=== PATIENT | male | born 1955 | race Caucasian/White ===

== ENCOUNTER → 2019-08-27 | Outpatient (CLI) | payer MEDICAID ==
[2019-08-27 10:49] LABS: African American GFR (CKD) >90 (>60 ml/min/1.73 sqM); Blood Urea Nitrogen 21 mg/dL (9-20); Non-African American GFR(CKD) 86 (>60 ml/min/1.73 sqM)
--- NOTE | 2019-09-01 15:30 | CT ---
EXAMINATION TYPE: CT angio chest DATE OF EXAM: 08/27/2019 COMPARISON: Outside CT 11/24/2017. HISTORY: Follow up known thoracic aneurysm CT DLP: 650.7 mGycm CONTRAST: CTA thoracic aorta with 3-D reconstruction is performed and with IV Contrast, patient injected with 1 00 mL of Isovue 370. Contrast CTA of the thoracic aorta was performed from the lung apex through the upper abdomen. 3D re construction imaging obtained at a separate workstation. CT Chest: THORACIC AORTA: There is aneurysm of the thoracic aorta at its root measuring 4.5 cm. Midportion asce nding thoracic aorta measures 4.0 cm. No complicating factors identified. No evidence for dissection or mediastinal hematoma. Aortic arch and descending thoracic aorta normal caliber. LUNGS: The lungs are clear and free of infiltrate or atelectasis. No pulmonary nodule or mass is det ected. No pleural effusion or CT evidence of interstitial lung disease. MEDIASTINUM: No evidence for mediastinal hematoma. The heart is not enlarged. No evidence for med iastinal mass or adenopathy. HILAR STRUCTURES: No evidence for mass. No hilar adenopathy is appreciated. OTHER: No significant abnormality. IMPRESSION- 1 thoracic aortic aneurysm at its root and midportion as discussed above. Direct comparison is diffic ult however there does not appear to be significant interval change.
== END | disposition home or self-care (01) ==
LOC: RADCTMAIN 10:13
PROVIDERS: ATTEND Internal Medicine Interventional Cardiology
DX: I71.2 Thoracic aortic aneurysm, without rupture (principal)
CPT/HCPCS: 82565; 84520; 71275; 36415; Q9967

== ENCOUNTER → 2020-10-05 | Outpatient (CLI) | payer MEDICARE ==
[2020-10-05 11:21] LABS: African American GFR (CKD) >90 (>60 ml/min/1.73 sqM); Blood Urea Nitrogen 23 mg/dL (9-20); Non-African American GFR(CKD) 78 (>60 ml/min/1.73 sqM)
--- NOTE | 2020-10-05 12:48 | US ---
EXAMINATION TYPE: US carotid duplex BILAT DATE OF EXAM: 10/05/2020 COMPARISON: NONE CLINICAL HISTORY: R25.1. Pt states heart "skipping beats"/ tremors EXAM MEASUREMENTS: RIGHT: Peak Systolic Velocity (PSV) cm/sec ----- Right CCA: 91.9 ----- Right ICA: 81.7 ----- Right ECA: 101.8 ICA/CCA ratio: 0.9 RIGHT: End Diastole cm/sec ----- Right CCA: 9.5 ----- Right ICA: 24.1 ----- Right ECA: 0.0 LEFT: Peak Systolic Velocity (PSV) cm/sec ----- Left CCA: 90.8 ----- Left ICA: 95.2 ----- Left ECA: 56.7 ICA/CCA ratio: 1.0 LEFT: End Diastole cm/sec ----- Left CCA: 12.8 ----- Left ICA: 27.0 ----- Left ECA: 0.0 VERTEBRALS (direction of flow): Right Vertebral: Antegrade Left Vertebral: Antegrade Rhythm: Arrhythmia No evidence of significant stenosis bilaterally/ Distal CCA bilaterally appeared dilated IMPRESSION: 1. No significant flow-limiting stenosis Criteria for Assigning % of Stenosis / Diameter reduction (Estimation based on the indirect measurements of the internal carotid artery velocities (ICA PSV). 1. Normal (no stenosis)=ICA PSV < 125 cm/s: ratio < 2.0: ICA EDV<40 cm/s. 2. Less than 50% stenosis=ICA PSV < 125 cm/s: ratio < 2.0: ICA EDV<40 cm/s. 3. 50 to 69% stenosis=ICA PSV of 125 to 230 cm/s: ration 2.0 ? 4.0: ICA EDV 40-100 cm/s. 4. Greater than 70% stenosis to near occlusion= ICA PSV > 230 cm/s: ratio > 4.0: ICA EDV > 100 cm/s. 5. Near occlusion= ICA PSV velocities may be low or undetectable: variable ratio and ICA EDV. 6. Total occlusion=unable to detect flow.
--- NOTE | 2020-10-05 14:45 | CT ---
EXAMINATION TYPE: CT chest with contrast CT abdomen pelvis without and with contrast DATE OF EXAM: 10/05/2020 COMPARISON: CT chest 08/27/2019 HISTORY: 65-year-old male Thoracic aneurysm, abdominal mass. TECHNIQUE: Contiguous axial scanning of the abdomen and pelvis initially without IV contrast. Subsequ ent scanning of the chest, abdomen, and pelvis with IV Contrast, patient injected with 100 mL of Isov ue 300. Delayed images through the kidneys were obtained. Coronal/sagittal reconstructions performed. CT DLP: 2824.60 (accession [id number]), 1795.4 (accession [id number]) mGycm Automated exposure control for dose reduction was used. FINDINGS: CHEST: Heart normal size without pericardial effusion. Some LAD coronary artery calcifications are present. Aortic root aneurysmal at 4.3 cm versus 4.5 cm, previously. Ascending aorta aneurysmal at 4.0 cm, unchanged. Bovine configuration to the aortic arch. No evidence for aortic dissection. Mildly enlarged caliber to the main right and left pulmonary arteries are 2.6 and 2.7 cm, respectivel y, suggesting underlying pulmonary arterial hypertension. Mild bilateral gynecomastia. No thoracic lymphadenopathy by CT size criteria. Strandy atelectasis in the lower lungs. No consolidation or pleural effusion. ABDOMEN: Liver enlarged at 19.3 cm. At least mild fatty infiltration given the low-attenuation. Portal venous system is patent. No biliary ductal dilatation. Gallbladder, adrenal glands, left kidney, spleen, and pancreas appear within normal limits. Slightly patulous distal left ureter dilated up to 9 mm of questionable clinical significance. 2.0 cm hypodense lesion medial cortex right kidney compatible with a cyst. 1.2 cm jarvis hepatis lymph node is nonspecific, unchanged from prior. Otherwise, no mesenteric or ret roperitoneal lymphadenopathy. No dilated small bowel, free fluid, or free air. Normal appendix. Mild overall stool burden. Sigmoid diverticulosis. Mildly redundant sigmoid colon. No pericolonic inf lammatory change. No evidence for AAA or significant abdominal aortic ectasia. PELVIS: Bladder is urine distended. Central prostatic calcifications. Prostate gland measures 4.9 cm wide. No abnormal fluid collection in the pelvis or pelvic lymphadenopathy. BONES: Moderate degenerative change of both hips. Facet arthropathy lower lumbar spine. DISH within the mid to lower thoracic spine. Some interval callus involving the left lateral ninth rib suggesting a subac yolanda to chronic injury, new from 08/27/2019. No osseous destructive process. IMPRESSION: 1. ANEURYSMAL AORTIC ROOT AT 4.3 CM (UNCHANGED). 2. ANEURYSMAL ASCENDING AORTA AT 4.0 CM (UNCHANGED). 3. LAD CORONARY ARTERY CALCIFICATIONS. POSSIBLE UNDERLYING PULMONARY ARTERIAL HYPERTENSION. 4. 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 5. SHORT SEGMENT DILATATION OF THE DISTAL LEFT URETER UP TO 9 MM OF QUESTIONABLE CLINICAL SIGNIFICANC E. CORRELATE WITH URINE CYTOLOGY. IF CONCERN FOR AN UNDERLYING UROTHELIAL LESION, CONSIDER CT UROGRAM . 6. SIGMOID DIVERTICULOSIS WITHOUT ACUTE DIVERTICULITIS. 7. UNABLE TO IDENTIFY AN ABDOMINAL MASS. IF PERSISTENT CONCERN, PLEASE CONTACT RADIOLOGY IN ORDER TO INDICATE THE AREA OF CONCERN AND THE EXAM CAN BE REVIEWED WITH DIRECTED ATTENTION.
== END | disposition home or self-care (01) ==
LOC: RADCTMAIN 10:04
PROVIDERS: ATTEND Family Medicine
DX: I71.2 Thoracic aortic aneurysm, without rupture (principal); I25.10 Atherosclerotic heart disease of native coronary artery without angina pectoris; R16.0 Hepatomegaly, not elsewhere classified; K76.0 Fatty (change of) liver, not elsewhere classified; N28.82 Megaloureter; K57.30 Diverticulosis of large intestine without perforation or abscess without bleeding; R25.1 Tremor, unspecified
CPT/HCPCS: 82565; 84520; 93880; 71260; 74176; 74177; 36415; Q9967

== ENCOUNTER → 2020-10-15 | Outpatient (CLI) | payer MEDICARE ==
--- NOTE | 2020-10-16 08:53 | MR ---
MR brain without contrast HISTORY: Tremors, right arm numbness, R 25.1, R 20.2 Multiplanar multisequence imaging through the brain No comparisons There is no restricted diffusion. There is no hemorrhage or hydrocephalus. Cortical atrophy is presen t. The corpus callosum, pituitary, cervical medullary junction, cerebellopontine angles are within no rmal limits. There are normal vascular flow voids. Periventricular confluent and scattered hyperinten sities are present on inversion recovery T2-weighted sequences. Largest lesion adjacent to the transmission supervisor ior horn left lateral ventricle posteriorly measures 11 mm. Orbits show symmetric appearance. Inflamm atory changes are present in the ethmoid air cells. IMPRESSION: Age-related changes of atrophy and probable chronic small vessel ischemia. Mild sinus dis ease. No subacute ischemia.
== END | disposition home or self-care (01) ==
LOC: RADMRIMAIN 08:10
PROVIDERS: ATTEND Family Medicine
DX: G31.1 Senile degeneration of brain, not elsewhere classified (principal)
CPT/HCPCS: 70551

== ENCOUNTER → 2021-12-06 | Outpatient (CLI) | payer MEDICARE ==
[2021-12-06 09:55] LABS: Creatinine,Urine Random 165.3 mg/dL; Protein/Creatinine Ratio,Urine 0.067
[2021-12-06 19:18] LABS: Basophils # (A) 0.08 X 10*3/uL (0.00-0.10); Eosinophils # (A) 0.33 X 10*3/uL (0.04-0.35); Eosinophils % (A) 3.9 %; HCT 48.9 % (39.6-50.0); HGB 15.4 g/dL (13.0-17.0); Immature Grans, Automated 0.5 %; Lymphocytes # (A) 2.35 X 10*3/uL (0.90-5.00); Lymphocytes % (A) 28.1 %; MCH 30.1 pg (27.0-32.0); MCHC 31.5 g/dL (32.0-37.0); MCV 95.7 fL (80.0-97.0); Monocytes # (A) 0.84 X 10*3/uL (0.20-1.00); NRBC Per 100 WBC 0 /100 WBCS (0.0-0.0); Neutrophils # (A) 4.72 X 10*3/uL (1.80-7.70); Neutrophils % (A) 56.5 %; Platelet Count 245 X 10*3/uL (140-440); RBC 5.11 X 10*6/uL (4.40-5.60); WBC 8.36 X 10*3/uL (4.50-10.00)
[2021-12-06 20:11] LABS: ALT 54 U/L (10-49); AST 33 U/L (14-35); African American GFR (CKD) 88.4 (60.0-200.0); Albumin 4.1 g/dL (3.8-4.9); Albumin/Globulin Ratio 1.54 (1.60-3.17); Alkaline Phosphatase 59 U/L (41-126); BUN/Creat Ratio 16.76 Ratio (12.00-20.00); Blood Urea Nitrogen 17.1 mg/dL (9.0-27.0); Calcium 9.8 mg/dL (8.7-10.3); Carbon Dioxide 19.2 mmol/L (20.0-27.5); Chloride 97 mmol/L (96-109); Chol/HDL Ratio 4.88 Ratio; Globulin 2.7 g/dL (1.6-3.3); Glucose 332 mg/dL (70-110); LDL Cholesterol,Calculated 105.5 mg/dL (0.0-131.0); Non-African American GFR(CKD) 76.2 (60.0-200.0); Potassium 4.7 mmol/L (3.5-5.5); Sodium 137 mmol/L (135-145); Total Protein 6.8 g/dL (6.2-8.2)
== END | disposition home or self-care (01) ==
LOC: LABWHC1 08:27
PROVIDERS: ATTEND Nurse Practitioner Adult Health
DX: Z00.00 Encounter for general adult medical examination without abnormal findings (principal); I10 Essential (primary) hypertension; E55.9 Vitamin D deficiency, unspecified; E03.9 Hypothyroidism, unspecified; E11.65 Type 2 diabetes mellitus with hyperglycemia; E66.9 Obesity, unspecified; J45.909 Unspecified asthma, uncomplicated; N40.1 Benign prostatic hyperplasia with lower urinary tract symptoms
CPT/HCPCS: 84439; 82570; 80061; 80053; 84443; 84156; 85025; 82306; 83036; 36415; G0103

== ENCOUNTER → 2022-03-22 | Outpatient (CLI) | payer MEDICARE ==
--- NOTE | 2022-03-22 10:29 | XR ---
EXAMINATION TYPE: XR chest 2V DATE OF EXAM: 03/22/2022 COMPARISON: NONE HISTORY: Shortness of breath TECHNIQUE: Frontal and lateral views of the chest are obtained. FINDINGS: Scattered senescent parenchymal changes noted. Hyperinflation compatible with COPD. No evidence for infiltrate. No evidence for atelectasis. Heart size is stable. Mediastinal structures are stable and grossly unremarkable. No evidence for hilar prominence. Degenerative changes dorsal spine. IMPRESSION: 1. No evidence for acute pulmonary disease.
== END | disposition home or self-care (01) ==
LOC: RADXRMAIN 10:02
PROVIDERS: ATTEND Internal Medicine
DX: R06.02 Shortness of breath (principal)
CPT/HCPCS: 71046

== ENCOUNTER 2023-08-14 09:39 | Day surgery (SDC) | payer MEDICARE ==
[~2023-08-14 09:39] MED LIST: ALPRAZolam 0.25 MG TAB PO PRN; ALPRAZolam 0.5 MG TAB PO PRN; ASPIRIN 325 MG TAB PO STA; NITROGLYCERIN SL TABS 0.4 MG TAB SUBLINGUAL PRN; SODIUM CHLORIDE 0.9% 1,000 ML in EMPTY BAG 1 BAG IV SCH
[2023-08-14] MEDS ORDERED: SODIUM CHLORIDE 0.9% 1,000 ML IV ONE (09:50)
[2023-08-14 10:09] LABS: Glucose,Whole Blood 126 mg/dL (70-110)
[2023-08-14 10:16] LABS: Anisocytosis Slight; Basophils % (A) 1 %; Eosinophils # (A) 0.4 k/uL (0-0.7); Eosinophils % (A) 4 %; HCT 35.2 % (39.0-53.0); HGB 10.7 gm/dL (13.0-17.5); Hypochromasia Marked; Lymphocytes # (A) 2.1 k/uL (1.0-4.8); Lymphocytes % (A) 24 %; MCH 22.8 pg (25.0-35.0); MCHC 30.5 g/dL (31.0-37.0); MCV 74.8 fL (80.0-100.0); Mean Platelet Volume 9.5; Microcytosis Slight; Monocytes # (A) 0.7 k/uL (0-1.0); Monocytes % (A) 8 %; Neutrophils # (A) 5.5 k/uL (1.3-7.7); Neutrophils % (A) 61 %; Platelet Count 267 k/uL (150-450); RBC 4.71 m/uL (4.30-5.90); RDW 16.8 % (11.5-15.5)
[2023-08-14 10:26] VITALS: TEMP 97.4
[2023-08-14] MEDS ORDERED: LIDOCAINE 1% INJ 10MG/ML (20 ML MDV) SQ ONE (12:20)
[2023-08-14] MEDS ORDERED: VERAPAMIL SYRINGE (5 MG/10 ML) INTRAARTER ONE (12:21)
[2023-08-14 12:24] LABS: African American GFR (CKD) >90 (>60 ml/min/1.73 sqM); Anion Gap 14 mmol/L; Blood Urea Nitrogen 13 mg/dL (9-20); Carbon Dioxide 21 mmol/L (22-30); Chloride 102 mmol/L (98-107); Glucose 130 mg/dL (74-99); Non-African American GFR(CKD) 89 (>60 ml/min/1.73 sqM); Potassium 4.1 mmol/L (3.5-5.1); Sodium 137 mmol/L (137-145)
[2023-08-14] MEDS ORDERED: HEPARIN SODIUM 1,000 UN/ML (10ML VL) IVP ONE (12:24)
[2023-08-14] MEDS ORDERED: MIDAZOLAM 2 MG/2 ML VIAL IVP ONE (12:24)
[2023-08-14] MEDS ORDERED: IOPAMIDOL-370 100ML BTL INJ ONE (12:39)
[2023-08-14] MEDS ORDERED: RX INFO: IV CONTRAST WAS GIVEN 1 EACH MISC MISCELLANE PRN (12:42)
[2023-08-14] MEDS ORDERED: SODIUM CHLORIDE 0.9% 1,000 ML IV SCH (12:45)
--- NOTE | 2023-08-14 12:45 | P.PCN ---
Date of Procedure: 08/14/23 Operative Findings: CARDIAC CATHETERIZATION PERFORMING PHYSICIAN: Sridhar Clark MD, RPVI PROCEDURE PERFORMED: 1. Selective right and left coronary angiogram 2. Left heart catheterization 3. Ultrasound-guided access of the right radial artery INDICATION: Cardiomyopathy COMPLICATION: None APPROACH: Right radial artery LEVEL OF SEDATION: Moderate with a sedation length of 14 minutes PROCEDURE DESCRIPTION: After obtaining an informed consent, the patient was brought to cardiac labor economics professor. Local anesthesia was performed using lidocaine subcutaneously. The right radial artery was cannulated using Seldinger technique, the guidewire passed easily, following that we advanced a 5-Moldovan sheath dilator assembly, the wire and dilator were removed and sheath was flushed. Following that, 2 mg of verapamil along with 5000 unit heparin were given. Selective right and left coronary angiogram using a 6-Moldovan JR4 and JL 3.5 catheters. Following that we did left heart catheterization using 6-Moldovan pigtail catheter. The procedure was completed there was no complication. SELECTIVE CORONARY ANGIOGRAM: The right coronary artery: Caliber vessel and dominant vessel and appeared to be angiographically normal Left main: Is angiographically normal. Bifurcates into an LCx and LAD The left circumflex: Large caliber vessel. Its and on dominant vessel. Its angiographically normal. Gives rises into the first and second and third obtuse marginal branches and what appears to be angiographically normal The left anterior descending artery: Large caliber vessel. The LAD has intermediate lesion in the midportion appears to be in the range of 40-50% only. HEMODYNAMICS: The LVEDP was 8 mmHg was no significant gradient across aortic valve CONCLUSION: 1. Intermediate disease involving the mid LAD 2. Normal left-sided filling pressure POSTPROCEDURE MANAGEMENT: Medical treatment at this point. Consider stress test to rule out ischemia in the LAD territory down the line
[2023-08-14 13:31] VITALS: RESP 16
[2023-08-14 14:35] VITALS: BP 121/57; PULSE 90
== END 2023-08-14 16:34 | disposition home or self-care (01) ==
LOC: CATHCVL 09:39
PROVIDERS: ATTEND Internal Medicine Interventional Cardiology
DX: I25.10 Atherosclerotic heart disease of native coronary artery without angina pectoris (principal); I42.9 Cardiomyopathy, unspecified; I10 Essential (primary) hypertension; E78.5 Hyperlipidemia, unspecified; E66.3 Overweight; E11.9 Type 2 diabetes mellitus without complications; I49.3 Ventricular premature depolarization; Z79.84 Long term (current) use of oral hypoglycemic drugs; Z87.09 Personal history of other diseases of the respiratory system; Z79.899 Other long term (current) drug therapy
CPT/HCPCS: 93458; 76937; 80048; 85025; C1769; C1894; J2250; J2001; J1644; Q9967

== ENCOUNTER → 2023-08-19 | Outpatient (CLI) | payer MEDICARE ==
[2023-08-19 18:36] LABS: % Iron Saturation 4.19 (15.00-50.00); Ferritin 7.8 ng/mL (22.0-322.0)
== END | disposition home or self-care (01) ==
LOC: LABWHC1 11:43
PROVIDERS: ATTEND Family Medicine
DX: D64.9 Anemia, unspecified (principal)
CPT/HCPCS: 36415; 82272; 82728; 83540; 83550

== ENCOUNTER → 2023-11-07 | Outpatient (CLI) | payer MEDICARE ==
[2023-11-07 15:11] LABS: Basophils # (A) 0.09 X 10*3/uL (0.00-0.10); Basophils % (A) 1.1 %; HCT 36.1 % (39.6-50.0); HGB 10.1 g/dL (13.0-17.0); Lymphocytes # (A) 1.66 X 10*3/uL (0.90-5.00); Lymphocytes % (A) 20.6 %; MCH 21.8 pg (27.0-32.0); Mean Platelet Volume 10.4 FL (9.5-12.2); Monocytes # (A) 0.69 X 10*3/uL (0.20-1.00); Monocytes % (A) 8.6 %; NRBC Per 100 WBC 0 X 10*3/uL (0.00-0.01); Neutrophils # (A) 5.21 X 10*3/uL (1.80-7.70); Neutrophils % (A) 64.5 %; Platelet Count 329 X 10*3/uL (140-440); RBC 4.63 X 10*6/uL (4.40-5.60); RDW 17.8 % (11.5-14.5); WBC 8.07 X 10*3/uL (4.50-10.00)
[2023-11-07 15:23] LABS: % Iron Saturation 5.77 (15.00-50.00); Ferritin 6.8 ng/mL (22.0-322.0)
== END | disposition home or self-care (01) ==
LOC: LABWHC1 09:03
PROVIDERS: ATTEND Internal Medicine Gastroenterology
DX: D50.9 Iron deficiency anemia, unspecified (principal)
CPT/HCPCS: 36415; 82728; 83540; 83550; 85025

== ENCOUNTER 2023-12-10 06:39 | Day surgery (SDC) | payer MEDICARE ==
[2023-12-09 08:46] VITALS: BMI 41.9
[2023-12-10] MEDS ORDERED: LIDOCAINE 1% (10MG/ML) FOR IV START INTRADERMA PRN (06:45)
[2023-12-10 07:33] LABS: Glucose,Whole Blood 167 mg/dL (70-110)
[2023-12-10] MEDS: LACTATED RINGERS 1,000 ML IV SCH (07:35)
[2023-12-10 07:36] VITALS: RESP 16; TEMP 97.6
[2023-12-10] MEDS ORDERED: LIDOCAINE 1% INJ 10MG/ML (20 ML MDV) ONE (07:45)
[2023-12-10] MEDS ORDERED: PROPOFOL 10 MG/ML 20 ML VIAL IV ONE (07:45)
--- NOTE | 2023-12-10 08:16 | P.PCN ---
Date of Procedure: 12/10/23 Procedure(s) Performed: Brief history: Patient is a pleasant 68-year-old white male scheduled for an elective upper endoscopy as well as colonoscopy as a part of evaluation of iron deficiency anemia. He denies any abdominal pain, nausea vomiting, rectal bleeding or melena. Procedure performed: Esophagogastroduodenoscopy with biopsy Colonoscopy with biopsy, snare polypectomy and tattooing with Shelli ink Preoperative diagnosis: Iron deficiency anemia Anesthesia: MAC Procedure: After informed consent was obtained from the patient was brought into the endoscopy unit and IV sedation was administered by anesthesia under continuous monitoring. Initially upper endoscopy was done. The Olympus GF 160 video endoscope was inserted inserted into the mouth and esophagus intubated without any difficulty and was gradually advanced into the stomach and duodenum and carefully examined. The bulb and second part of the duodenum appeared normal. In the third part of the duodenum there was a 3 cm broad-based polyp identified and multiple biopsies were done in the polyp. Also biopsies were done from the second part of the duodenum to evaluate for celiac disease. The scope was then withdrawn into the stomach adequately insufflated with air and upon careful examination the antrum and body, cardia and fundus appeared normal. Small antral polyp identified which was biopsied. The scope was then withdrawn into the esophagus. The GE junction was located at 40 cm to the incisors. It appeared regular with no erythema erosions or ulcerations. Rest of the esophagus appeared normal. Patient tolerated the procedure well. At this time the patient continued to remain sedation. Initial digital rectal examination was normal. Olympus CF 160 video colonoscope was then inserted into the rectum and gradually advanced to the cecum without any difficulty. Careful examination was performed as the scope was gradually being withdrawn. The prep was excellent. In the cecum there was a large ulcerated mass occupying the entire cecum and multiple biopsies were done from this area followed by tattoo ing with Shelli ink. Mucosa of the, ascending colon, transverse colon, descending colon, sigmoid colon and rectum appeared normal. In the proximal rectum there was a 1 cm polyp removed by snare polypectomy. Scattered left- sided diverticulosis seen. Retroflexion was performed in the rectum and no lesions were noted. Patient tolerated the procedure well. Impression: 1. Upper endoscopy revealed a 3 cm broad-based duodenal polyp in the third part of the duodenum status post multiple biopsies, small gastric polyps 2. Colonoscopy revealed a) large ulcerated cecal mass status was multiple biopsies followed by tattooing with Shelli ink b) 1 cm proximal rectal polyp status post polypectomy c) scattered sigmoid diverticulosis Recommendations: Findings of this examination were discussed with the patient as well as his family. He was advised to follow with the biopsy results. He'll be seen in office in 1 week. In the meantime he will be scheduled for CT of abdomen and pelvis.
[2023-12-10 08:35] LABS: Glucose,Whole Blood 167 mg/dL (70-110)
[2023-12-10 08:47] VITALS: BP 149/81; PULSE 80
== END 2023-12-10 08:55 | disposition home or self-care (01) ==
LOC: ORWHC2ENDO 06:39
PROVIDERS: ATTEND Internal Medicine Gastroenterology
DX: D12.8 Benign neoplasm of rectum (principal); K57.30 Diverticulosis of large intestine without perforation or abscess without bleeding; K31.7 Polyp of stomach and duodenum; D50.9 Iron deficiency anemia, unspecified; I10 Essential (primary) hypertension; E11.9 Type 2 diabetes mellitus without complications; E07.9 Disorder of thyroid, unspecified; E66.01 Morbid (severe) obesity due to excess calories; Z79.890 Hormone replacement therapy; Z79.82 Long term (current) use of aspirin; Z79.84 Long term (current) use of oral hypoglycemic drugs; Z79.899 Other long term (current) drug therapy; Z68.41 Body mass index [BMI] 40.0-44.9, adult
CPT/HCPCS: 88305; 88342; 88341; 45380; 45385; 43239; 45381; J2001; J2704

== ENCOUNTER → 2023-12-11 | Outpatient (CLI) | payer MEDICARE ==
[2023-12-11 07:45] LABS: African American GFR (CKD) >90 (>60 ml/min/1.73 sqM); Blood Urea Nitrogen 17 mg/dL (9-20); Non-African American GFR(CKD) 85 (>60 ml/min/1.73 sqM)
--- NOTE | 2023-12-11 13:21 | CT ---
EXAMINATION: CT ABDOMEN AND PELVIS WITH IV CONTRAST DATE OF EXAMINATION: 12/11/2023. COMPARISON: CT chest, abdomen and pelvis on 10/05/2020.. INDICATION: Anemia with abnormal colonoscopy. PROCEDURE: Axial CT of the abdomen and pelvis was performed with contrast and sagittal and coronal reformatted images were performed. CT dose lowering techniques were used, to include: automated expos ure control, adjustment for patient size, and/or use of iterative reconstruction. 100 mL of Isovue 30 0 was given intravenously. FINDINGS: LOWER CHEST : The visualized lung bases are clear. There are no pleural or pericardial effusions. ABDOMEN: Liver and Biliary system: There is a subcentimeter hypodensity in the left lobe of the liver that is too small to fully characterize and was not clearly identified on the previous examination. The live r otherwise appears unremarkable. Adrenal glands: Normal. Kidneys and ureters: Approximately 2 cm cyst in the inferior pole of the right kidney is unchanged. T he kidneys otherwise appear unremarkable Spleen: Normal. Pancreas: Normal. Gallbladder: Normal. Lymph nodes, Peritoneum and mesentery: There is no mesenteric or retroperitoneal lymphadenopathy. Gastrointestinal tract: There are no dilated loops of bowel or free intraperitoneal air. The appe ndix is normal. There is mild descending colonic and sigmoid colonic diverticulosis without evidence of diverticulitis. There is thickening involving the base of the cecum which would raise the suspicio n of malignancy. Aorta/IVC: There is mild vascular calcification throughout the abdominal aorta without evidence of aneurysmal dilation or dissection. IVC normal. Abdominal wall: Normal. PELVIS: Fluid: There is no free fluid in the pelvis. Lymph Nodes: There is no pelvic or inguinal lymphadenopathy.. Urinary bladder: Normal. BONES: There are no osseous destructive lesions.. ADDITIONAL SIGNIFICANT FINDINGS: None. IMPRESSION: 1. Thickening of the base of the cecum would raise the suspicion of malignancy. Correlation can be ma de with a history of abnormal colonoscopy. 2. Diverticulosis without evidence of diverticulitis. 3. Subcentimeter hypodensity within the liver is too small to fully characterize, however appears new since the previous examination and a small metastasis would be in the differential diagnosis.
== END | disposition home or self-care (01) ==
LOC: RADCTMAIN 06:57
PROVIDERS: ATTEND Internal Medicine Gastroenterology
DX: K57.90 Diverticulosis of intestine, part unspecified, without perforation or abscess without bleeding (principal); R19.09 Other intra-abdominal and pelvic swelling, mass and lump
CPT/HCPCS: 82565; 84520; 74177; 36415; Q9967

== ENCOUNTER → 2024-05-12 | Outpatient (CLI) | payer MEDICARE ==
--- NOTE | 2024-06-10 14:42 | CT ---
EXAMINATION TYPE: CT angio thoracic CT DLP: 1523.10 mGycm, Automated exposure control for dose reduction was used. DATE OF EXAM: 05/12/2024 COMPARISON: CT abdomen pelvis 12/11/2023, CT chest abdomen and pelvis 10/05/2020, CTA chest 08/27/2019. CLINICAL INDICATION:Male, 69 years old with history of I71.20 Thoracic Aortic Aneurysm, wo rupture; P HH, TECHNIQUE: Multiple axial CTA images of the chest was obtained prior and to the administration of IV contrast. Maximum intensity projection format were performed on a separate workstation. Then the abdo men was scanned after administration of 100 cc of Isovue 370 IV contrast. FINDINGS: ARTERIAL VASCULATURE: No evidence of aortic dissection or intramural hematoma. Stable aneurysmal dila tation of the aortic root measuring up to 4.5 cm. Stable aneurysmal dilatation of the ascending thora cic aorta measuring up to 4.0 cm. No extension into the arch. The descending thoracic aorta measures up to 2.5 cm. PULMONARY ARTERIAL VASCULATURE: Normal caliber. No evidence of filling defect to suggest pulmonary em bolus. VENOUS SYSTEM: Unremarkable. Lungs/pleura: Dependent bilateral lower lobe subsegmental atelectasis. Lingular partial subsegmental atelectasis. No focal consolidation or pneumothorax. No pleural effusion. Heart: Within normal limits. No pericardial effusion. Small coronary artery calcifications. Small aor tic valvular calcifications. Mediastinum: No gross evidence of adenopathy. Lower Neck: No significant findings. Soft tissues: Bilateral gynecomastia. Musculoskeletal: The osseous structures appear intact. Multilevel degenerative disease. Upper abdomen: IMPRESSION: Stable aortic root and ascending aortic aneurysms dating back to 2019 CTA.
== END | disposition home or self-care (01) ==
LOC: RADCTMAIN 13:45
PROVIDERS: ATTEND Internal Medicine Interventional Cardiology
DX: I71.20 Thoracic aortic aneurysm, without rupture, unspecified (principal); Z86.79 Personal history of other diseases of the circulatory system
CPT/HCPCS: 71275; 74174; Q9967

== ENCOUNTER → 2025-04-29 | Outpatient (CLI) | payer MEDICARE ==
[2025-04-29 13:07] LABS: African American GFR (CKD) >90 (>60 ml/min/1.73 sqM); Blood Urea Nitrogen 15 mg/dL (9-20); Non-African American GFR(CKD) 85 (>60 ml/min/1.73 sqM)
--- NOTE | 2025-04-29 14:32 | CT ---
EXAMINATION TYPE: CT angio thor/abd DATE OF EXAM: 04/29/2025 2:02 PM COMPARISON: 05/12/2024 CLINICAL INDICATION: Male, 70 years old with history of Q25.43 CONGENITAL ANEURYSM OF AORTA; PHH, f/u AAA TECHNIQUE: Multiple thin slice sub-millimeter images were obtained after administration of contrast. MIP reconstructed images and maximum intensity projection images were obtained. 3D reconstructed images and maximum intensity projection images were obtained. CT angio thor/abd CT Contrast: Contrast used:100ml mL of Isovue 370 without and with IV Contrast, Oral contrast used: None CT DLP: 2036.9 mGycm, Automated exposure control for dose reduction was used. FINDINGS: CTA chest: The ascending thoracic aorta at the main pulmonary artery is 4.3 cm. Previous measurement 4.0 cm. On the previous dilated aortic root does not appear as prominent on the current examination. Main pulmonary artery the bifurcation is 3.1 cm. Mild coronary artery calcification is present. There is a common origin of the right subclavian and left common carotid artery from the innominate. No ao rtic dissection is evident. Descending thoracic aorta are tapers normally through its visualized cour se. CTA Abdomen and pelvis: Common celiac superior mesenteric artery origins are normal. Renal artery lex gins are normal. Minimal vascular calcifications within the aorta. Inferior mesenteric artery is norm al. Bifurcation is unremarkable. No aneurysmal dilatation of the abdominal aorta is evident. Proximal common iliac arteries are patent. CT CHEST: Portion of the thyroid visualized is normal. No suspicious lung nodules or focal infiltrates are present. No enlarged mediastinal or hilar adenopathy is evident. CT ABDOMEN: Note is made of a bowel anastomosis in the right mid abdomen ascending colon region. Liver: Normal Spleen: Normal Pancreas: Normal Adrenal glands: The adrenal glands are normal. Gallbladder: Normal Kidneys: No masses are evident. No hydronephrosis is present. No cysts are present. Delayed images were obtained through the kidneys, which remain unremarkable. Aorta: Vascular calcification is within the aorta. Inferior vena cava: Normal. Loops of bowel within the abdomen and upper pelvis are normal. The study is without oral contrast limiting bowel evaluation. Bowel anastomosis including colonic anastomosis is noted. IMPRESSION: 1. Ascending thoracic aortic aneurysm 4.3 cm. Previous measurement 4.0 cm. No additional aneurysmal dilatation or dissection is evident. [facility], Workstation: [facility], 04/29/2025 2:30 PM
== END | disposition home or self-care (01) ==
LOC: RADCTMAIN 12:23
DX: Q25.43 Congenital aneurysm of aorta (principal); I71.21 Aneurysm of the ascending aorta, without rupture
CPT/HCPCS: 82565; 84520; 71275; 74175; 36415; Q9967